=== PATIENT | female | born 1955 | race Hispanic/Latino ===

== ENCOUNTER 2016-12-28 12:24 | Emergency (ER) | payer OTHER ==
[~2016-12-28] VITALS: Ht 157.5 cm; Wt 85.3 kg
[2016-12-28 13:10] LABS: EOSINOPHIL (%) 2.4 % (0-5); EOSINOPHIL COUNT 0.1 K/uL (0-0.3); HEMATOCRIT 39.8 % (36.0-46.0); IMMATURE GRANULOCYTE (%) 0.7 % (0.0-0.7); INSTRUMENT ABS NEUTROPHIL CT 3.1 K/uL; LYMPHOCYTE COUNT 1.9 K/uL (1.0-2.8); MCH 29.1 PG (29.0-34.0); MCHC 33.7 G/DL (30.0-36.0); MCV 86.5 FL (83-99); MEAN PLAT.VOLUME 10.8 uM^3 (9.5-12.4); MONOCYTE (%) 7.9 % (3-12); MONOCYTE COUNT 0.5 K/uL (0-0.8); NEUTROPHIL COUNT 3.1 K/uL (1.8-6.4); PLATELET COUNT 156 K/uL (156-360); WHITE BLOOD COUNT 5.7 K/uL (4.1-10.2)
[2016-12-28 13:15] LABS: PROTHROMBIN TIME 11.4 SEC (10.2-12.9)
[2016-12-28 13:17] LABS: PTT 30.5 SEC (25-37)
[2016-12-28 13:21] LABS: CHLORIDE 107 mEq/L (99-109); POTASSIUM 4.1 mEq/L (3.7-5.4); SODIUM 142 mEq/L (136-147)
[2016-12-28 13:23] LABS: GLUCOSE 124 mg/dL (70-99)
[2016-12-28 13:24] LABS: ANION GAP 10 MEQ/L (2-14)
[2016-12-28 13:28] LABS: UREA NITROGEN (BUN) 13 mg/dL (9-23)
[2016-12-28 13:30] LABS: GFR ESTIMATE (CALCULATED) > 59 mL/min/; TROP-I INTERPRETATION NEGATIVE; TROPONIN-I < 0.01 ng/mL (0.0-0.30)
[2016-12-28 15:27] LABS: TROP-I INTERPRETATION NEGATIVE; TROPONIN-I < 0.01 ng/mL (0.0-0.30)
[2016-12-28] MEDS ORDERED: PREDNISONE50 MG PO (15:42)
[2016-12-28] MEDS ORDERED: NORVASC2.5 MG PO (15:42)
[2016-12-28] MEDS ORDERED: PROAIR HFA8.5 GM IH (15:42)
[2016-12-28] MEDS ORDERED: ZITHROMAX Z-PA250 MG PO (15:45)
[2016-12-28 16:22] VITALS: BP 171/91
== END 2016-12-28 17:35 | disposition home or self-care (01) ==
LOC: EME 12:24
PROVIDERS: Emergency Medicine
DX: J20.9 Acute bronchitis, unspecified (principal); R07.89 Other chest pain; I10 Essential (primary) hypertension; Z87.01 Personal history of pneumonia (recurrent)
CPT/HCPCS: 71010; 80048; 84484; 85025; 85610; 85730; 93005; 94640; 99281; 99284